=== PATIENT | female | born 1930 | race Caucasian/White ===

== ENCOUNTER 2018-09-03 14:16 | Outpatient (CLI) | payer MEDICARE, OTHER ==
--- NOTE | 2018-09-03 15:29 | RAD ---
PA AND LATERAL CHEST: History: Cough. FINDINGS: The heart size is normal. The lungs are well expanded without lobar consolidation, pneumothoraces or pleural effusions. There are mild degenerative changes in the spine. IMPRESSION: No acute cardiopulmonary process. POS: [facility]
== END 2018-09-03 14:17 | disposition home or self-care (01) ==
LOC: RAD-FRANK 14:16
PROVIDERS: ATTEND Nurse Practitioner Family
DX: J40 Bronchitis, not specified as acute or chronic (principal)
CPT/HCPCS: 71046

== ENCOUNTER 2019-10-01 19:04 | Inpatient (IN) | payer MEDICARE ==
[~2019-10-01 19:04] MED LIST: Dexamethasone 20 MG/5 ML VIAL ONE; Glycopyrrolate 0.2 MG/ML 5 ML SYRINGE ONE; Iopamidol 370 76% 100 ML VIAL ONE; Lidocaine 1% PF 5 ML VIAL ONE; Ondansetron PF 4 MG/2 ML Vial ONE; PROPOFOL 200 MG/20 ML VIAL ONE; Rocuronium Bromide 10 MG/ML (10ML VIAL) ONE; Succinylcholine Chloride 20 MG/ML 10 ml SYRINGE FS ONE
[2019-10-01 19:33] LABS: #Lymphocytes 1.2 thou/uL (1.20-3.40); #Monocytes 0.4 thou/uL (0.11-0.59); #Neutrophils 7.8 thou/uL (1.40-6.50); %Eosinophils 0.1 % (0.0-10.0); %Lymphocytes 12.2 % (21.0-51.0); %Monocytes 4.7 % (0.0-10.0); %Neutrophils 82.9 % (42.0-75.0); Hemoglobin 12.7 g/dL (12.0-16.0); Mean Corpuscular HGB CONC 32.5 g/dL (32.0-36.0); Mean Corpuscular Hemoglobin 28.8 pg (27.0-31.0); Mean Corpuscular Volume 88.5 fL (78.0-98.0); Mean Platelet Volume 9.5 fL (7.4-10.4); Platelet Count 196 thou/uL (130-400); Red Blood Cell (RBC) Count 4.42 mill/uL (4.20-5.40); White Blood Cell (WBC) Count 9.4 thou/uL (4.8-10.8)
[2019-10-01 19:55] LABS: ALT (SGPT) 14 U/L (8-55); AST (SGOT) 17 U/L (5-34); Albumin 4.8 g/dL (3.4-4.8); Alkaline Phosphatase 77 U/L (40-110); Anion Gap 19 mmol/L (10-20); BUN (Urea Nitrogen) 27 mg/dL (9.8-20.1); Bilirubin, Total 0.9 mg/dL (0.2-1.2); Calc. Creatinine Clearance 0 mL/min (70-130); Calcium 10.1 mg/dL (7.8-10.44); Carbon Dioxide 22 mmol/L (23-31); Chloride 97 mmol/L (98-107); Estimated GFR-MDRD 33; Globulin 3.2 g/dL (2.4-3.5); Glucose 242 mg/dL (83-110); Lipase 19 U/L (8-78); Potassium 3.4 mmol/L (3.5-5.1); Sodium 135 mmol/L (136-145)
[2019-10-01] MEDS ORDERED: Ondansetron PF 4 MG/2 ML Vial ONE ×2 (20:13→21:31)
[2019-10-01] MEDS ORDERED: Morphine 4 MG/ML VIAL ONE ×2 (20:33→22:12)
--- NOTE | 2019-10-01 21:43 | CT ---
CT of abdomen and pelvis: 10/01/2019 COMPARISON: None HISTORY: Diarrhea, pain TECHNIQUE: Axial CT imaging at 5 mm intervals from the lung bases through the pubic symphysis with IV contrast. Coronal and sagittal reformatted imaging obtained. 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 Imaged lung bases are unrema rkable. No free intraperitoneal air. There is significant perihepatic and perisplenic free fluid. Cholecystectomy clips are present. No focal liver lesion. There is fatty atrophy of the pancreas. [place] ateral adrenal glands are grossly unremarkable. Bilateral kidneys are relatively small. 2 subcentimeter hypodensities are noted within the left kidney, too small to characterize. There is fluid within a inguinal hernia on the left. There is free fluid within the pelvis posteriorl y. Limited assessment of the bowel without oral contrast demonstrates diverticulosis of the descending colon and sigmoid colon. No evidence for diverticulitis. There is abnormal free fluid in the right paracolic gutter. There are dilated edematous fluid-filled loops of small bowel within the mid abdomen/right lower quad rant. There is a large markedly dilated loop of bowel with a prominent air-fluid level within the epigastric region extending into the right lower quadrant measuring at least 23 cm in craniocaudal di mension. The exact segment of bowel which this represents is difficult to ascertain without contrast media. This is felt to likely represent a markedly dilated loop of distal small bowel. There is swirling of the mesenteric structures in the right lower quadrant, best seen on coronal imaging, consistent with volvulus, with probable associated internal hernia. The markedly dilated loo p of bowel within the abdomen is likely a markedly distended small bowel loop associated with a closed loop obstruction. Surgical consultation is advised. There is atherosclerotic calcification of the abdominal aorta and its branches. No abdominal or pelvi c lymphadenopathy. There is a left hip arthroplasty. There is prominent multilevel lower lumbar spine degenerative change. IMPRESSION: Abnormal free fluid throughout the abdomen/pelvis. Findings suggesting right lower quadra nt volvulus with associated high-grade small bowel obstruction and large dilated loop of bowel with a large air-fluid level within the epigastric region concerning for high-grade small bowel obstructio n, possibly on the basis of closed loop obstruction. Surgical consultation advised. Results called to Dr. Woody at 9:39 PM 10/01/2019
[2019-10-01] MEDS ORDERED: Fentanyl 100 MCG/2 ML VIAL ONE (23:01)
[2019-10-01] MEDS ORDERED: Albumin 25% 100 ML ONE (23:42)
[2019-10-02] MEDS ORDERED: Promethazine HCl 25 MG/ML VIAL IM PRN ×2 (00:24→03:25)
[2019-10-02] MEDS ORDERED: diphenhydrAMINE 50 MG/ML VIAL IVP PRN (00:24)
[2019-10-02] MEDS ORDERED: diphenhydrAMINE 50 MG/ML VIAL IM PRN (00:24)
[2019-10-02] MEDS ORDERED: Ondansetron HCl/PF 4 MG/2 ML Vial IVP PRN (00:24)
[2019-10-02] MEDS ORDERED: diphenhydrAMINE 25 MG CAP PO PRN (00:24)
[2019-10-02] MEDS ORDERED: Zolpidem Tartrate 5 MG TAB PO PRN (00:24)
[2019-10-02] MEDS ORDERED: Naloxone HCl 0.4 mg/ml Vial IV PRN (00:24)
[2019-10-02] MEDS ORDERED: fentaNYL Citrate/PF 2,000 MCG in Sodium Chloride 0.9% 60 ML IV PRN (00:24)
[2019-10-02] MEDS ORDERED: Communication Order-Pharmacy FS SCH (00:30)
[2019-10-02 02:53] VITALS: BMI 29.2
[2019-10-02] MEDS ORDERED: Acetaminophen 1,000 MG in Premix Bag 1 BAG IVPB PRN ×2 (03:25→13:07)
[2019-10-02] MEDS ORDERED: Ondansetron PF 4 MG/2 ML Vial IVP PRN (03:25)
[2019-10-02] MEDS ORDERED: hydrALAZINE 20 MG/ML VIAL SLOW IVP PRN (03:25)
[2019-10-02] MEDS ORDERED: Dextrose 5% in Water 1,000 ML IV PRN (03:25)
[2019-10-02] MEDS ORDERED: Dextrose 50% Abboject 50 ML SYRINGE SLOW IVP PRN (03:25)
[2019-10-02] MEDS ORDERED: Ondansetron ODT 4 MG TAB PO PRN (03:25)
--- NOTE | 2019-10-02 04:55 | OP ---
DATE OF PROCEDURE: 10/02/2019 PREOPERATIVE DIAGNOSIS: Cecal volvulus. POSTOPERATIVE DIAGNOSIS: Cecal volvulus. PROCEDURES PERFORMED: Exploratory laparotomy, right colectomy with isoperistaltic anastomosis. ANESTHESIA: General. ESTIMATED BLOOD LOSS: Minimal. COMPLICATIONS: None. 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 The ischemia resolved with untwisting. She has a very narrow right colon mesentery. Decision was made for right colectomy. DESCRIPTION OF PROCEDURE: The patient was taken to the operating room and laid supine on the operating room table. After general anesthetic was obtained, a Hall was placed. The abdomen was prepped and draped in a sterile fashion. Midline incision was made. Upon entering the abdomen, the small bowel and cecum were ischemic. These were able to be untwisted without difficulty. There was a cecal bascule and cecal volvulus. When it was untwisted, the distal small bowel and colon ischemia did resolve with a very narrow mesentery. Right colon was mobilized along the white line of Toldt. The hepatic flexure mobilized in the usual fashion. INDU 75 stapler was fired across the proximal transverse colon. A reload was fired across the terminal ileum. The right colon mesentery was taken using the Impact LigaSure. The distal end of the small intestine and distal colon do have no evidence of ischemia. Isoperistaltic [id number] anastomosis was performed using INDU 75 stapler. The common enterotomy was closed using running Vicryl suture. The mesenteric defect was closed using interrupted silk suture. No bleeding in the abdomen. The abdomen was irrigated using sterile solution. NG tube was felt to be in good position in the stomach. All instrument counts, needle counts, lap counts were correct. Midline fascia was closed using #1 PDS from the top and bottom and tied in the middle. Subcutaneous tissues were irrigated and closed using 3-0 Vicryl, 4-0 Monocryl and Dermabond. The patient was sent to Recovery in stable condition. All instrument counts, needle counts, and lap counts were correct. Job ID: [id number]
[2019-10-02] MEDS: Sodium Chloride 0.9% 1,000 ML IV SCH ×3 (05:18→17:00)
[2019-10-02] MEDS: HumaLOG 300 UNITS/3 ML VIAL SC PRN (05:30)
[2019-10-02 06:18] LABS: #Lymphocytes 0.7 thou/uL (1.20-3.40); #Monocytes 1.1 thou/uL (0.11-0.59); #Neutrophils 8.9 thou/uL (1.40-6.50); %Basophils 0.1 % (0.0-1.0); %Eosinophils 0.2 % (0.0-10.0); %Lymphocytes 6.4 % (21.0-51.0); %Monocytes 9.9 % (0.0-10.0); %Neutrophils 83.5 % (42.0-75.0); Hemoglobin 10.5 g/dL (12.0-16.0); Mean Corpuscular HGB CONC 33.1 g/dL (32.0-36.0); Mean Corpuscular Hemoglobin 29.8 pg (27.0-31.0); Mean Platelet Volume 9.6 fL (7.4-10.4); Platelet Count 142 thou/uL (130-400); RBC Distribution Width 12.9 % (11.5-14.5); Red Blood Cell (RBC) Count 3.53 mill/uL (4.20-5.40); White Blood Cell (WBC) Count 10.6 thou/uL (4.8-10.8)
[2019-10-02 06:32] LABS: Anion Gap 14 mmol/L (10-20); BUN (Urea Nitrogen) 30 mg/dL (9.8-20.1); Calc. Creatinine Clearance 31 mL/min (70-130); Calcium 8.6 mg/dL (7.8-10.44); Carbon Dioxide 20 mmol/L (23-31); Chloride 106 mmol/L (98-107); Estimated GFR-MDRD 34; Glucose 240 mg/dL (83-110); Potassium 3.9 mmol/L (3.5-5.1); Sodium 136 mmol/L (136-145)
--- NOTE | 2019-10-02 07:27 | HP ---
CHIEF COMPLAINT: Abdominal pain. HISTORY OF PRESENT ILLNESS: This is an 88-year-old female with only prior surgical history of cholecystectomy on the abdomen, who presents with a 2-day history of diffuse abdominal pain and distention. She has had nausea, but no vomiting. No change in bowels. No blood in stool. No history of previous small intestine obstruction. Pain is described as 9/10, sharp, diffuse, nothing makes it better. PAST MEDICAL HISTORY: Hypertension, diabetes mellitus, peripheral vascular disease. PAST SURGICAL HISTORY: Laparoscopic cholecystectomy, right carotid endarterectomy, left hip. MEDICATIONS: Unknown hypertensive. Please see list. ALLERGIES: NO KNOWN DRUG ALLERGIES. SOCIAL HISTORY: No history of smoking, alcohol or other drugs. REVIEW OF SYSTEMS: Ten-system review of systems is otherwise negative unless described above. PHYSICAL EXAMINATION: VITAL SIGNS: Pulse 83, blood pressure 156/67, and O2 sat 98%. HEENT: Sclerae anicteric. Oropharynx clear. NECK: No lymphadenopathy. CHEST: Clear. HEART: Regular rate. ABDOMEN: Soft, diffusely tender with peritoneal signs. Small umbilical hernia, reducible. No inguinal hernias. EXTREMITIES: No ischemia or edema to extremities. LABORATORY DATA: White blood cell count 9, hemoglobin 12, and platelet counts 196. Sodium 135, potassium 3.4, creatinine 1.5, and glucose 242. DIAGNOSTIC DATA: CT scan shows closed loop obstruction, free fluid in the abdomen, no free air. ASSESSMENT: 1. Closed loop intestinal obstruction with peritoneal signs, although hemodynamically stable. 2. Diabetes mellitus. 3. Hypertension. PLAN: Exploratory laparotomy tonight. She has swirling of the mesentery. She could have ischemic changes. Risks, benefits, and alternatives discussed. The family and the patient gave consent, we will do this tonight. Job ID: [id number]
--- NOTE | 2019-10-02 09:19 | PDOC.GSPN ---
Surgery Progress Note: Subj - Subjective Narrative: Ms. Marguerite Berry is an 88 y/o female that is post op day 1 for a right hemicolectomy due to cecal volvulus and obstruction. She feels much better since the surgery. Her abdominal pain is minimal and localized to the midline incision whenever she coughs or moves. She has a BATTERY TESTER at bed side but has not been using it. She complains of a mild sore throat and is requesting cough drops for the irritation. She has been having ice chips and tolerating those well. No appetite yet. She has not had a bowel movement or flatulence. Denies any nausea/vomiting. Denies any fevers, night sweats, DEAN, dyspnea, abdominal distension. No bleeding or drainage from incision overnight. - NG tube in place. - Hall catheter was drained at 0700 am with 85 mL in it at time of this encounter. - IVF @ 125 mL/hr - Has not ambulated. Surgery Progress Note: Obj - Vital signs Vital signs: Vital Signs - Most Recent Temp Pulse Resp BP Pulse Ox 98.5 F 92 15 119/69 100 10/02/19 08:00 10/02/19 08:00 10/02/19 08:00 10/02/19 08:00 10/02/19 08:00 - Physical Exam General: other (Lying flat in bed at time of the exam with family in the room. NAD. Friendly and cooperative.) ENT: normal mucosa, other (No conjunctival pallor.) Neck: no aruna distention, trachea midline Cardiovascular: regular rate and rhythm (without murmurs, rubs, or gallops), other (Radial pulses and posterior tibial pulse palpated bilaterally and symmetric. No pre-tibial edema.) Respiratory: normal expansion, normal respiratory effort, other (Breath sounds were clear with faint crackles in the left lung base.) Abdomen: soft, non tender, nondistended, positive bowel sounds, appropriately tender Hernia: none Genitourinary (Female): other (Hall catheter in place) Psychiatric: memory intact Wound: dressing clean,dry,intact (without erythema, drainage, calor, or bleeding.) Surgery Progress Note: Results - Labs Result Diagrams: 10/02/19 05:44 10/02/19 05:44 Lab results: Laboratory Results - last 24 hr 10/02/19 10/02/19 10/02/19 05:23 05:44 05:44 WBC 10.6 RBC 3.53 L Hgb 10.5 L Hct 31.8 L MCV 90.0 MCH 29.8 MCHC 33.1 RDW 12.9 Plt Count 142 MPV 9.6 Neutrophils % 83.5 H Lymphocytes % 6.4 L Monocytes % 9.9 Eosinophils % 0.2 Basophils % 0.1 Neutrophils # 8.9 H Lymphocytes # 0.7 L Monocytes # 1.1 H Eosinophils # 0.0 Basophils # 0.0 Sodium 136 Potassium 3.9 Chloride 106 Carbon Dioxide 20 L Anion Gap 14 BUN 30 H Creatinine 1.47 H Estimated GFR (MDRD) 34 Glucose 240 H POC Glucose 252 H Calcium 8.6 Surgery Progress Note: A/P - Problem (1) S/P right hemicolectomy Current Visit: Yes Code(s): Z90.49 - ACQUIRED ABSENCE OF OTHER SPECIFIED PARTS OF DIGESTIVE TRACT Status: Acute Assessment and Plan: 1. Marguerite Berry is an 88 y/o female post op day 1 - Right hemicolectomy for cecal volvulus with obstruction. - She is recovering well with minimal pain and distress. Continue BATTERY TESTER. DC NG, ice chips, sips clears - Remove Hall Catheter am tomorrow - She has been having expected elevated glucose post op, continue her insulin regimen. - Her creatinine has been elevated compared to her baseline form her last record 3 years ago. Continue IVF and monitor CMP for resolution. 2. HTN - Her blood pressure has been normal, continue to hold her home medicines. All recommendations will be sent to Dr. Estevez.
[2019-10-02] MEDS: Famotidine/PF 20 mg/2ml Vial SLOW IVP SCH (09:38)
[2019-10-02] MEDS: rOPINIRole HCl 2 MG TAB PO SCH (20:17)
[2019-10-03] MEDS: Sodium Chloride 0.9% 1,000 ML IV SCH ×3 (01:00→23:20)
[2019-10-03 07:14] LABS: Anion Gap 14 mmol/L (10-20); BUN (Urea Nitrogen) 31 mg/dL (9.8-20.1); Calc. Creatinine Clearance 31 mL/min (70-130); Calcium 8.4 mg/dL (7.8-10.44); Carbon Dioxide 22 mmol/L (23-31); Chloride 108 mmol/L (98-107); Estimated GFR-MDRD 34; Glucose 178 mg/dL (83-110); Potassium 3.8 mmol/L (3.5-5.1); Sodium 140 mmol/L (136-145)
[2019-10-03] MEDS: Famotidine/PF 20 mg/2ml Vial SLOW IVP SCH (08:22)
[2019-10-03] MEDS ORDERED: Acetaminophen 1,000 MG in Premix Bag 1 BAG IVPB PRN (10:23)
[2019-10-03] MEDS ORDERED: Fentanyl 100 MCG/2 ML VIAL SLOW IVP PRN (10:23)
--- NOTE | 2019-10-03 10:26 | PDOC.GSPN ---
Surgery Progress Note: Subj - Subjective Patient reports: no new complaints Surgery Progress Note: Obj - Vital signs Vital signs: Vital Signs - Most Recent Temp Pulse Resp BP Pulse Ox 98.6 F 84 18 115/59 L 99 10/03/19 07:48 10/03/19 07:48 10/03/19 07:48 10/03/19 07:48 10/03/19 08:22 - Physical Exam General: no distress Cardiovascular: regular rate and rhythm Respiratory: clear to auscultation Abdomen: soft, positive bowel sounds, appropriately tender Wound: healing well Surgery Progress Note: Results - Labs Result Diagrams: 10/02/19 05:44 10/03/19 05:55 Lab results: Laboratory Results - last 24 hr 10/02/19 10/03/19 10/03/19 23:51 05:55 06:02 Sodium 140 Potassium 3.8 Chloride 108 H Carbon Dioxide 22 L Anion Gap 14 BUN 31 H Creatinine 1.46 H Estimated GFR (MDRD) 34 Glucose 178 H POC Glucose 199 H 192 H Calcium 8.4 Surgery Progress Note: A/P - Problem (1) S/P right hemicolectomy Current Visit: Yes Code(s): Z90.49 - ACQUIRED ABSENCE OF OTHER SPECIFIED PARTS OF DIGESTIVE TRACT Status: Acute - Plan Plan: POD 2 -clears -continue to mobilize -dc director of residence life -kidney function improving
[2019-10-03] MEDS: HumaLOG 300 UNITS/3 ML VIAL SC PRN ×2 (12:29→17:35)
[2019-10-03] MEDS ORDERED: Enoxaparin Sodium 30 MG/0.3 ML SYRINGE SC SCH (21:00)
[2019-10-03] MEDS ORDERED: Enoxaparin Sodium 40 MG/0.4 ML SYRINGE SC SCH (21:00)
[2019-10-03] MEDS: rOPINIRole HCl 2 MG TAB PO SCH (22:08)
[2019-10-04 06:07] LABS: Anion Gap 12 mmol/L (10-20); BUN (Urea Nitrogen) 24 mg/dL (9.8-20.1); Calc. Creatinine Clearance 41 mL/min (70-130); Calcium 8.8 mg/dL (7.8-10.44); Carbon Dioxide 22 mmol/L (23-31); Chloride 110 mmol/L (98-107); Estimated GFR-MDRD 45; Glucose 191 mg/dL (83-110); Potassium 3.6 mmol/L (3.5-5.1); Sodium 140 mmol/L (136-145)
[2019-10-04] MEDS: HumaLOG 300 UNITS/3 ML VIAL SC PRN ×2 (06:27→18:20)
[2019-10-04] MEDS: Famotidine/PF 20 mg/2ml Vial SLOW IVP SCH (08:46)
--- NOTE | 2019-10-04 14:24 | PQF ---
PRITI MEZA BRYAN DAVID MD [id number] SURG B- [id number] CLINICAL DOCUMENTATION IMPROVEMENT CLARIFICATION FORM: ICD-10 Updated PLEASE DO AN ADDENDUM TO THE PROGRESS NOTE WITH ANY DOCUMENTATION UPDATES OR ADDITIONS AND CARRY THROUGH TO DC SUMMARY. THANK YOU. DATE: 10/04/2019, 10/06/2019 ATTN:DR. Marcella BAUTISTA Please exercise your independent, professional judgment in responding to the clarification form. Clinical indicators are provided on the bottom of this form for your review. Please check appropriate box(s): [ ] Acute Renal Failure (ARF) / Acute Kidney Injury (JOEL) [ ] Other diagnosis [ ] Unable to determine In addition, please specify: Present on Admission (POA): [ ] Yes [ ] No [ ] Unable to determine National Kidney Foundation Guidelines for CKD Staging Stage I Kidney damage with normal or increased GFRGFR > 90 Stage IIKidney damage with mildly decreased GFRGFR 60-89 Stage III Kidney damage with moderately decreased GFRGFR 30-59 Stage IVKidney damage with severely decreased GFRGFR 16-29 Stage VKidney failureGFR<15 ESRDEnd Stage Renal DiseaseOn dialysis Acute Renal Failure/Acute Kidney Failure defined as: Increases in SCr by (>) 0.3 mg/dl within 48 hours OR- Increases in SCr by (>) 1.5 times baseline, known or presumed to have occurred within the prior 7 days OR- Urine volume < 0.5 ml/kg/hour for 6 hours (KDIGO supplement 2012 for RIFLE/MARK criteria) For continuity of documentation, please document condition throughout progress notes and discharge summary. Thank You. CLINICAL INDICATORS - SIGNS / SYMPTOMS / LABS / RESULTS AND LOCATION IN MR 10/01 CREATININE 1.50 BUN 27 10/02 CREATININE 1.47 BUN 30 10/03 CREATININE 1.46 BUN 31 10/04 CREATININE 1.13 BUN 24 10/01 ED REPORT: PATIENT PRESENTS FOR EVALUATION OF ABDOMINAL DISTENTION. PATIENT REPORTS 2 DAY HISTORY OF DIARRHEA AND FEELING WEAK, ASSOCIATED WITH INABILITY TO TOLERATE ORAL INTAKE AND LOSS OF APPETITE. 10/02 PN (ANGEL) A/P -HER CREATININE HAS BEEN ELEVATED COMPARED TO HER BASELINE FROM HER LAST RECORD 3 YEARS AGO. 10/03 PN (NIKOLAIT) PLAN- KIDNEY FUNCTION IMPROVING RISK: RECENT SX: EXPLORATORY LAPAROTOMY W RT COLECTOMY W ISOPERISTALTIC ANASTOMOSIS, ADVANCED AGE (88) (OP- NOTE/ PARRENT ) 10/02 TREATMENT: SERIAL CMP LABS ( 10/01-PRESENT) IV FLUIDS ( 10/02-PRESENT) (This form is maintained as a part of the permanent medical record) 2014 [employer]. All Rights Reserved [email or web address] [phone] MTDD
[2019-10-04] MEDS ORDERED: Acetaminophen 1,000 MG in Premix Bag 1 BAG IVPB PRN (16:17)
--- NOTE | 2019-10-04 16:20 | PDOC.GSPN ---
Surgery Progress Note: Subj - Subjective Patient reports: no new complaints, tolerating liquids well Surgery Progress Note: Obj - Vital signs Vital signs: Vital Signs - Most Recent Temp Pulse Resp BP Pulse Ox 98 F 89 16 131/78 91 L 10/04/19 15:17 10/04/19 15:17 10/04/19 15:17 10/04/19 15:17 10/04/19 15:17 - Physical Exam General: no distress Cardiovascular: regular rate and rhythm Respiratory: clear to auscultation Abdomen: soft, nondistended, appropriately tender Wound: healing well Surgery Progress Note: Results - Labs Result Diagrams: 10/02/19 05:44 10/04/19 05:02 Lab results: Laboratory Results - last 24 hr 10/04/19 10/04/19 10/04/19 05:02 05:33 11:45 Sodium 140 Potassium 3.6 Chloride 110 H Carbon Dioxide 22 L Anion Gap 12 BUN 24 H Creatinine 1.13 H Estimated GFR (MDRD) 45 Glucose 191 H POC Glucose 210 H 195 H Calcium 8.8 Surgery Progress Note: A/P - Problem (1) S/P right hemicolectomy Current Visit: Yes Code(s): Z90.49 - ACQUIRED ABSENCE OF OTHER SPECIFIED PARTS OF DIGESTIVE TRACT Status: Acute - Plan Plan: Advance to full liquids Add tramadol for pain HL IVF, creatinine improved
[2019-10-04] MEDS: Enoxaparin Sodium 30 MG/0.3 ML SYRINGE SC SCH (20:22)
[2019-10-04] MEDS: rOPINIRole HCl 2 MG TAB PO SCH (20:22)
[2019-10-05] MEDS: HumaLOG 300 UNITS/3 ML VIAL SC PRN ×4 (00:07→18:39)
[2019-10-05] MEDS: Ondansetron PF 4 MG/2 ML Vial IVP PRN ×2 (06:46→19:57)
[2019-10-05] MEDS: traMADol HCl 50 MG TAB PO PRN (06:46)
[2019-10-05 06:56] LABS: Anion Gap 17 mmol/L (10-20); BUN (Urea Nitrogen) 17 mg/dL (9.8-20.1); Calc. Creatinine Clearance 44 mL/min (70-130); Calcium 8.9 mg/dL (7.8-10.44); Carbon Dioxide 19 mmol/L (23-31); Chloride 108 mmol/L (98-107); Estimated GFR-MDRD 49; Glucose 188 mg/dL (83-110); Potassium 3.6 mmol/L (3.5-5.1); Sodium 140 mmol/L (136-145)
[2019-10-05] MEDS: Famotidine/PF 20 mg/2ml Vial SLOW IVP SCH (09:14)
--- NOTE | 2019-10-05 10:22 | PRG ---
DATE OF SERVICE: 10/05/2019 SUBJECTIVE: Ms. Berry feels more bloated and is having more pain today. She is still ambulating without difficulty. She does complain of nausea this morning. OBJECTIVE: VITAL SIGNS: Her pulse is 76, respirations 18, she is afebrile. Urine output is adequate. ABDOMEN: She has not had a bowel movement yet. Her abdomen is soft. Her wound is healing well. She has some high-pitched and occasional bowel sounds, but she is more distended. ASSESSMENT: 1. Postop right colectomy for cecal volvulus with slow resolution of ileus. 2. Deconditioning. PLAN: I recommended she will do clear liquids only today as tolerated. Her ileus has not completely resolved yet. Encouraged her to ambulate and be active. We will leave the Hall catheter today given her feeling worse. She is to go to rehab next week when her ileus resolves. Job ID: [id number]
[2019-10-05] MEDS: Sodium Chloride 0.9% 1,000 ML IV SCH (10:36)
[2019-10-05] MEDS: Acetaminophen 1,000 MG in Premix Bag 1 BAG IVPB PRN (20:03)
[2019-10-05] MEDS: rOPINIRole HCl 2 MG TAB PO SCH (20:44)
[2019-10-05] MEDS: Enoxaparin Sodium 30 MG/0.3 ML SYRINGE SC SCH (20:44)
[2019-10-06] MEDS: HumaLOG 300 UNITS/3 ML VIAL SC PRN (06:18)
[2019-10-06] MEDS: Sodium Chloride 0.9% 1,000 ML IV SCH ×3 (06:19→18:45)
[2019-10-06 06:25] LABS: #Eosinphils 0.1 thou/uL (0.0-0.7); #Lymphocytes 0.6 thou/uL (1.20-3.40); #Monocytes 1.2 thou/uL (0.11-0.59); #Neutrophils 7.2 thou/uL (1.40-6.50); %Basophils 0.1 % (0.0-1.0); %Eosinophils 0.7 % (0.0-10.0); %Lymphocytes 6.5 % (21.0-51.0); %Monocytes 13.3 % (0.0-10.0); %Neutrophils 79.4 % (42.0-75.0); Hemoglobin 9.7 g/dL (12.0-16.0); Mean Corpuscular HGB CONC 33.7 g/dL (32.0-36.0); Mean Corpuscular Hemoglobin 29.7 pg (27.0-31.0); Mean Corpuscular Volume 88.2 fL (78.0-98.0); Mean Platelet Volume 9.1 fL (7.4-10.4); Platelet Count 183 thou/uL (130-400); RBC Distribution Width 13.2 % (11.5-14.5); Red Blood Cell (RBC) Count 3.26 mill/uL (4.20-5.40)
[2019-10-06 06:47] LABS: Anion Gap 17 mmol/L (10-20); BUN (Urea Nitrogen) 20 mg/dL (9.8-20.1); Calc. Creatinine Clearance 38 mL/min (70-130); Calcium 8.7 mg/dL (7.8-10.44); Carbon Dioxide 19 mmol/L (23-31); Chloride 106 mmol/L (98-107); Estimated GFR-MDRD 42; Glucose 212 mg/dL (83-110); Potassium 3.9 mmol/L (3.5-5.1); Sodium 138 mmol/L (136-145)
[2019-10-06] MEDS: Famotidine/PF 20 mg/2ml Vial SLOW IVP SCH (08:07)
[2019-10-06] MEDS: Acetaminophen 1,000 MG in Premix Bag 1 BAG IVPB PRN (08:07)
[2019-10-06] MEDS ORDERED: Sodium Chloride 0.9% 500 ML IVPB SCH (10:30)
[2019-10-06] MEDS ORDERED: Sodium Chloride 0.9% 250 ML IVPB SCH (18:15)
[2019-10-06] MEDS: rOPINIRole HCl 2 MG TAB PO SCH (20:07)
[2019-10-06] MEDS: Enoxaparin Sodium 30 MG/0.3 ML SYRINGE SC SCH (20:08)
--- NOTE | 2019-10-06 20:11 | PDOC.GSPN ---
Surgery Progress Note: Subj - Subjective Narrative: Patient is feeling more bloated. No vomiting but is not really able to take much by mouth. When I saw her around 11AM her daughter stated that they had already been out ambulating twice today. They're planning to walk at least twice more. Surgery Progress Note: Obj - Vital signs Vital signs: Vital Signs - Most Recent Temp Pulse Resp BP Pulse Ox 98.7 F 90 95 H 167/69 H 94 L 10/06/19 19:38 10/06/19 19:38 10/06/19 19:38 10/06/19 19:38 10/06/19 16:00 - Physical Exam General: no distress Abdomen: soft, decreased bowel sounds, distended Surgery Progress Note: Results - Labs Result Diagrams: 10/06/19 06:03 10/06/19 06:03 Lab results: Laboratory Results - last 24 hr 10/06/19 10/06/19 11:14 17:46 POC Glucose 165 H 163 H Surgery Progress Note: A/P - Plan Plan: Patient appears to have a postoperative ileus. She is not taking much by mouth and seems to be a little dehydrated. Her creatinine has crept up a little bit in her urine output has been low. I have given her a small bolus of IV fluids and increased her baseline rate. In going to leave the Hall catheter to monitor urine output. She was encouraged to ambulate frequently.
[2019-10-06] MEDS: traMADol HCl 50 MG TAB PO PRN (21:41)
[2019-10-06] MEDS: Ondansetron PF 4 MG/2 ML Vial IVP PRN (23:47)
[2019-10-07] MEDS ORDERED: Acetaminophen 1,000 MG in Premix Bag 1 BAG IVPB PRN (00:10)
[2019-10-07] MEDS: HumaLOG 300 UNITS/3 ML VIAL SC PRN (05:59)
[2019-10-07] MEDS: Sodium Chloride 0.9% 1,000 ML IV SCH ×3 (05:59→21:23)
[2019-10-07] MEDS: Famotidine/PF 20 mg/2ml Vial SLOW IVP SCH (08:40)
--- NOTE | 2019-10-07 10:14 | PDOC.GSPN ---
Surgery Progress Note: Subj - Subjective Narrative: Still complaining of nausea at times. No vomitting overnight. Occasional flatus Surgery Progress Note: Obj - Vital signs Vital signs: Vital Signs - Most Recent Temp Pulse Resp BP Pulse Ox 98.5 F 88 14 151/70 H 93 L 10/07/19 07:21 10/07/19 07:21 10/07/19 07:21 10/07/19 07:21 10/07/19 07:21 - Physical Exam General: no distress Cardiovascular: regular rate and rhythm Respiratory: clear to auscultation Abdomen: soft, appropriately tender, distended Wound: healing well Surgery Progress Note: Results - Labs Result Diagrams: 10/06/19 06:03 10/06/19 06:03 Lab results: Laboratory Results - last 24 hr 10/06/19 10/07/19 23:37 05:44 POC Glucose 190 H 205 H Surgery Progress Note: A/P - Problem (1) S/P right hemicolectomy Current Visit: Yes Code(s): Z90.49 - ACQUIRED ABSENCE OF OTHER SPECIFIED PARTS OF DIGESTIVE TRACT Status: Acute - Plan Plan: PO6 right colectomy for volvulus -expected ileus persists -NG if vomits again -Picc/TPN tomorrow if no bowel function -try to DC cox again today
--- NOTE | 2019-10-07 11:26 | RAD ---
Abdomen 2 views INDICATION: Ileus COMPARISON: None FINDINGS: Bowel gas: The dilated loops of small bowel are not appreciably changed from comparison CT dated 09/22. Small amount of gas is present within the rectum. Lung bases: Small bilateral pleural effusions with bibasilar atelectasis Additional findings: Cholecystectomy clips within the right upper quadrant of the abdomen Osseous structures: No acute osseous abnormality is demonstrated.Left hip endoprosthesis. Diffuse ost eopenia. There is scattered degenerative and osteoarthritic change present. IMPRESSION: 1. Persistent prominent dilated loops of small bowel within the central abdomen may reflect a promine nt ileus; however, high-grade partial small bowel obstruction remains a concern. 2. Small bilateral pleural effusions and bibasilar atelectasis
[2019-10-07] MEDS: Enoxaparin Sodium 30 MG/0.3 ML SYRINGE SC SCH (21:10)
[2019-10-07] MEDS: rOPINIRole HCl 2 MG TAB PO SCH (21:11)
[2019-10-08] MEDS: Sodium Chloride 0.9% 1,000 ML IV SCH ×2 (04:45→06:31)
[2019-10-08] MEDS: HumaLOG 300 UNITS/3 ML VIAL SC PRN (06:29)
--- NOTE | 2019-10-08 08:53 | PDOC.GSPN ---
Surgery Progress Note: Subj - Subjective Patient reports: pain well controlled, tolerating liquids well Narrative: 88 yo female approx 1 wk s/p R angelique-colectomy d/t volvulus. Reports PO intake of ice chips only since yesterday & has been doing well with this without additional n/v. BM x3 & urinated x2 yesterday. Most recent urination was approx 2100 last night. English like she needed to urinate earlier this am, but was unable to do so now. Feels like she is weaker now vs 1st day post-op; is concerned that she need help to get out of bed--states this is d/t feeling weak & not d/t pain. Denies suprapubic pain or pressure, denies current sensation of needing to urinate. Surgery Progress Note: Obj - Vital signs Vital signs: Vital Signs - Most Recent Temp Pulse Resp BP Pulse Ox 98.2 F 70 16 122/68 93 L 10/08/19 04:00 10/08/19 04:00 10/08/19 04:00 10/08/19 04:00 10/08/19 04:00 - Physical Exam General: no distress, well developed, well nourished Cardiovascular: regular rate and rhythm Respiratory: clear to auscultation, normal respiratory effort Abdomen: soft, non tender, positive bowel sounds Musculoskeletal: other (Sitting comfortably in chair) Psychiatric: other (Awake/alert. Answers questions approrpriately) Wound: healing well Surgery Progress Note: Results - Labs Result Diagrams: 10/06/19 06:03 10/06/19 06:03 Lab results: Laboratory Results - last 24 hr 10/07/19 10/08/19 23:54 05:31 POC Glucose 200 H 178 H Surgery Progress Note: A/P - Problem (1) S/P right hemicolectomy Current Visit: Yes Code(s): Z90.49 - ACQUIRED ABSENCE OF OTHER SPECIFIED PARTS OF DIGESTIVE TRACT Status: Acute - Plan Plan: Overall doing better today vs yesterday. Consider advancing diet today. Continue to monitor urine output--if unable to void this morning, will need to cath again. Still planning on d/c to rehab when ready. Addendum - Physician - Physician Attestation Date/Time: 10/08/19 1041 I personally performed or re-performed the physical examination and medical decision making. I have verified all student documentation or findings, including history, physical exam and/or medical decision making. Doing better today. Derek clears Able to void on her own Advance to full liquids
[2019-10-08] MEDS: Famotidine/PF 20 mg/2ml Vial SLOW IVP SCH (09:01)
[2019-10-08] MEDS ORDERED: Sodium Chloride 0.9% 1,000 ML IV SCH (10:41)
[2019-10-08] MEDS: Enoxaparin Sodium 30 MG/0.3 ML SYRINGE SC SCH (21:10)
[2019-10-08] MEDS: rOPINIRole HCl 2 MG TAB PO SCH (21:10)
--- NOTE | 2019-10-09 07:02 | PDOC.GSPN ---
Surgery Progress Note: Subj - Subjective Patient reports: no new complaints Narrative: Ms. 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 She has struggled with prolonged post-operative ileus, however today she is doing well. Her pain is controlled (0/10) and reports tolerating clear liquids well. She plans to try cream of wheat this morning for breakfast. She is passing bowel movements, however she is having difficulty voiding. Last night she had a straight catheter with ~400 ml output from bladder. She will try to void on her own again this AM. She is walking and working with PT without issues. Family member mentions that she believes the patient is breathing a little faster today and may be nervous from being in the hospital. Patient denies nausea, vomiting, and dizziness. Surgery Progress Note: Obj - Vital signs Vital signs: Vital Signs - Most Recent Temp Pulse Resp BP Pulse Ox 97.4 F L 83 16 142/74 H 95 10/09/19 04:00 10/09/19 04:00 10/09/19 04:00 10/09/19 04:00 10/09/19 05:22 - Physical Exam General: no distress, no pain ENT: normal mucosa Cardiovascular: regular rate and rhythm, no murmur, other (No lower extremity edema. 2+ pedal pulses bilaterally & symmetrically.) Respiratory: clear to auscultation (With intermittent crackles. Good air flow.) , normal expansion Abdomen: soft (Slightly distended but not rigid.), positive bowel sounds, appropriately tender Psychiatric: oriented to time, oriented to person, oriented to place Wound: dressing clean,dry,intact, healing well (No surrounding erythema, purulent drainage, or bleeding from midline incision.) Surgery Progress Note: Results - Labs Result Diagrams: 10/06/19 06:03 10/06/19 06:03 Lab results: Laboratory Results - last 24 hr 10/09/19 10/09/19 00:13 05:42 POC Glucose 150 H 157 H Surgery Progress Note: A/P - Plan Plan: Ms. 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 She is improving from her post-operative ileus, positive bowel movements, tolerating clears, and ambulating well. -Continue full liquids today -Monitor voids and urine output -Continue walking and working with PT -Continue use of spirometer HTN -Stable with Hydralazine and Verapamil -Still holding home Furosemide and HCTZ DM -Currently on sliding scale Addendum - Physician - Physician Attestation Date/Time: 10/09/19 1101 I personally performed or re-performed the physical examination and medical decision making. I have verified all student documentation or findings, including history, physical exam and/or medical decision making. Will advance to GI soft diet to give her more options I suspect anorexia will persist for the next 2 to 4 weeks. Restart Zoloft Probably
[2019-10-09] MEDS: Famotidine/PF 20 mg/2ml Vial SLOW IVP SCH (08:59)
--- NOTE | 2019-10-09 12:07 | RAD ---
XR Chest 1 View Portable History: Dyspnea Comparison: Radiograph 2012 Findings: Moderate effusions. Heart size is enlarged. Abnormal left peripheral airspace opacity. No p neumothorax. Impression: 1. Moderate layering bilateral pleural effusions. 2. Mild cardiomegaly and low-grade portal venous congestion. 3. Peripheral somewhat round density left lower lobe which appears new from the 10/01/2019 CT examina tion may be confluent pleural fluid. Attention on follow-up imaging recommended.
[2019-10-09] MEDS: HumaLOG 300 UNITS/3 ML VIAL SC PRN (12:08)
[2019-10-09] MEDS ORDERED: Furosemide 20 MG/2 ML VIAL SLOW IVP SCH (15:15)
[2019-10-09] MEDS: Enoxaparin Sodium 30 MG/0.3 ML SYRINGE SC SCH (21:00)
[2019-10-09] MEDS: rOPINIRole HCl 2 MG TAB PO SCH (21:00)
[2019-10-10 05:31] LABS: Anion Gap 20 mmol/L (10-20); BUN (Urea Nitrogen) 22 mg/dL (9.8-20.1); Calc. Creatinine Clearance 34 mL/min (70-130); Calcium 8.7 mg/dL (7.8-10.44); Carbon Dioxide 14 mmol/L (23-31); Chloride 110 mmol/L (98-107); Estimated GFR-MDRD 36; Glucose 183 mg/dL (83-110); Potassium 3.8 mmol/L (3.5-5.1); Sodium 140 mmol/L (136-145)
--- NOTE | 2019-10-10 06:58 | PDOC.GSPN ---
Surgery Progress Note: Subj - Subjective Patient reports: feels better, diarrhea Narrative: Ms. 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 She is feeling well today, however she experienced several episodes of loose stools and uncontrollable diarrhea last night. She is breathing better today, continues to ambulate well, and has been voiding on her own. She reports eating chicken noodle soup and other soft foods yesterday without issues. However, at dinner she experienced sudden nausea when attempting to eat guyanese fries and fish, after which she only consumed ice chips and water. Patient denies abdominal pain, chest pain, dyspnea, and dizziness. Surgery Progress Note: Obj - Vital signs Vital signs: Vital Signs - Most Recent Temp Pulse Resp BP Pulse Ox 97.7 F 77 16 121/69 96 10/10/19 03:21 10/10/19 03:21 10/10/19 03:21 10/10/19 03:21 10/10/19 03:21 - Physical Exam General: no distress ENT: normal mucosa Cardiovascular: regular rate and rhythm (Possible new systolic murmur.), other ( Pedal pulses 2+ bilaterally. 1+ edema up to santiago level bilaterally.) Respiratory: clear to auscultation (However did ausculate crackes at lower lung villalobos.), normal expansion, normal respiratory effort Abdomen: soft, non tender, nondistended, positive bowel sounds Psychiatric: oriented to time, oriented to person, oriented to place Wound: dressing clean,dry,intact (No surrounding erythema, purulend drainage, or bleeding from midline incision.), healing well Surgery Progress Note: Results - Labs Result Diagrams: 10/06/19 06:03 10/10/19 04:38 Lab results: Laboratory Results - last 24 hr 10/09/19 10/10/19 23:03 04:38 Sodium 140 Potassium 3.8 Chloride 110 H Carbon Dioxide 14 L Anion Gap 20 BUN 22 H Creatinine 1.37 H Estimated GFR (MDRD) 36 Glucose 183 H POC Glucose 192 H Calcium 8.7 Surgery Progress Note: A/P - Plan Plan: Ms. 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 -CXR (12/10) showed bilateral pleural effusions with mild cardiomegaly -Kidney values have worsened slightly: BUN 20 to 22, Cr 1.2 to 1.37, GFR 42 to 36 -Ambulating well. Breathing is better. Voiding on her own. Nausea yesterday with dinner. -Stay on GI softs for today as tolerated. Continue to hydrate. Monitor nausea. -Continue to ambulate and walk -Continue to use spirometer Diarrhea -Plan to run C. Diff Assay -Monitor bowel movements HTN -Blood pressures have been stable. -Currently on Hydralazine and Verapamil -Home furosemide and HCTZ on hold DM -Blood glucose checks have been stable. -Currently on sliding scale
[2019-10-10] MEDS: Famotidine/PF 20 mg/2ml Vial SLOW IVP SCH (08:40)
[2019-10-10] MEDS: HumaLOG 300 UNITS/3 ML VIAL SC PRN (12:19)
[2019-10-10] MEDS: Enoxaparin Sodium 30 MG/0.3 ML SYRINGE SC SCH (20:51)
[2019-10-10] MEDS: rOPINIRole HCl 2 MG TAB PO SCH (20:51)
[2019-10-11] MEDS: HumaLOG 300 UNITS/3 ML VIAL SC PRN ×3 (00:36→18:18)
--- NOTE | 2019-10-11 06:43 | PDOC.GSPN ---
Surgery Progress Note: Subj - Subjective Patient reports: no new complaints, having loose stools Narrative: Ms. 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 She is doing well this morning, however she continues to have diarrhea. Most recent episode was 3:00am this morning. She is able to tolerate small bites of food including soup, soft cake, and Ensure. She continues to ambulate well in the hallways and has been voiding on her own. Pain well controlled. Patient denies nausea, vomiting, dizziness, and shortness of breath. Surgery Progress Note: Obj - Vital signs Vital signs: Vital Signs - Most Recent Temp Pulse Resp BP Pulse Ox 98.1 F 76 16 107/65 94 L 10/11/19 04:42 10/11/19 04:42 10/11/19 04:42 10/11/19 04:42 10/11/19 04:42 - Physical Exam General: no distress Cardiovascular: regular rate and rhythm, no murmur, other (2+ edema bilaterally in lower extremities.) Respiratory: clear to auscultation (No crackles, rales, or wheezes.), normal expansion, normal respiratory effort, breath sounds present Abdomen: soft, non tender, nondistended, positive bowel sounds, other (No ecchymosis.) Integumentary: no rash Psychiatric: oriented to time, oriented to person, oriented to place Wound: dressing clean,dry,intact, healing well (Midline incision is clean and without surrouding erythema, purulent discharge, or bleeding.) Surgery Progress Note: Results - Labs Result Diagrams: 10/06/19 06:03 10/10/19 04:38 Lab results: Laboratory Results - last 24 hr 10/11/19 10/11/19 00:28 06:10 POC Glucose 217 H 112 H Surgery Progress Note: A/P - Plan Plan: Ms. 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 -Ambulating well. Breathing is better. Voiding on her own. No nausea. Vitals and blood glucose checks stable. -C Diff. test was negative(-) -Stay on GI softs & continue to hydrate -Plan to discharge to rehab -Continue to ambulate, walk, & use spirometer. Diarrhea -Monitor bowel movements -Continue to hydrate and encourage Ensure high protein HTN -Currently on Hydralazine and Verapamil -Home furosemide and HCTZ on hold DM -Currently on sliding scale Addendum - Physician - Physician Attestation Date/Time: 10/11/19 4054 I personally performed or re-performed the physical examination and medical decision making. I have verified all student documentation or findings, including history, physical exam and/or medical decision making. Overall doing well. Still feels weak bharati regular diet to rehab tomorrow if bed available
[2019-10-11] MEDS: Famotidine/PF 20 mg/2ml Vial SLOW IVP SCH (09:17)
[2019-10-11] MEDS: rOPINIRole HCl 2 MG TAB PO SCH (20:44)
[2019-10-11] MEDS: Enoxaparin Sodium 30 MG/0.3 ML SYRINGE SC SCH (20:44)
[2019-10-12] MEDS: HumaLOG 300 UNITS/3 ML VIAL SC PRN (05:35)
[2019-10-12] MEDS: Famotidine/PF 20 mg/2ml Vial SLOW IVP SCH (08:39)
--- NOTE | 2019-10-12 08:51 | DIS ---
DATE OF ADMISSION: 10/01/2019 DATE OF DISCHARGE: 10/12/2019 ADMITTING DIAGNOSES: 1. Cecal and small bowel volvulus. 2. Acute renal failure. 3. Diabetes mellitus. 4. Hypertension. DISCHARGE DIAGNOSES: 1. Cecal and small bowel volvulus. 2. Acute renal failure. 3. Diabetes mellitus. 4. Hypertension. PROCEDURES: Right hemicolectomy by Dr. Estevez without complication. CONDITION ON DISCHARGE: Improved. STAFF: Josep Estevez MD HOSPITAL COURSE: The patient was admitted with peritonitis and cecal volvulus on CT scan. She underwent exploratory laparotomy and right colectomy. She had fairly significant ischemia to her small bowel as well that improved with the untwisting of the midgut. On her postop course, ileus resolved fairly quickly. However, she did have some vomiting and had recurrent ileus. This slowly resolved. On the day of discharge, she is tolerating regular food. She is having bowel movements. She had, had some loose stools and had a Clostridium difficile toxin test that was negative. She is being transferred to rehab. Her medicines from home will all be restarted. She will follow up in my office in 3 to 4 weeks. Job ID: [id number]
[2019-10-12 12:27] VITALS: BP 148/75
[2019-10-12 17:54] VITALS: TEMP 97.9
--- NOTE | 2019-10-14 02:43 | PQF ---
PRITI MEZA BRYAN DAVID MD [id number] SURG B- [id number] CLINICAL DOCUMENTATION CLARIFICATION FORM: POST DISCHARGE Addendum to original discharge summary date: ____ Late entry note date: __ DATE:10/14/19 ATTN: Josep De La Torre Please exercise your independent, professional judgment in responding to the clarification form. Clinical indicators are provided on the bottom of this form for your review Please check appropriate box(s) to clarify if the following diagnosis has been ruled in or ruled out: Peritonitis [ ] Ruled in diagnosis [ ] Continue to treat [ ] Resolved [ ] Ruled out diagnosis [ ] Cannot rule out diagnosis [ ] Other diagnosis [ ] Unable to determine In addition, please specify: Present on Admission (POA): [ ] Yes [ ] No [ ] Unable to determine For continuity of documentation, please document condition throughout progress notes and discharge summary. Thank You. CLINICAL INDICATORS - SIGNS / SYMPTOMS / LABS CAT Scan report p2 10/01 Dr Pierson Impression: Abnormal free fluid throughout abdomen/pelvis. Findings suggesting right lower quadrant volvulus with associated high-grade bowel obstruction and large dilated loop bowel General Surgery PN 3 10/02 'She is recovering well with minimal pain and distress. Discharge summary p1 10/12 The patient was admitted with peritonitis and cecal volvulus on CT RISK FACTORS Operaive report 10/02 88 year-old Female Operaive report 10/02 Cecal Volvulos TREATMENTS Operaive report 10/02 Right colectomy MAR 10/01 IVF 125ml/hr (This form is maintained as a part of the permanent medical record) 2014 [employer]. All Rights Reserved Maria G [email or web address] [not provided] MTDD
== END 2019-10-12 18:30 | DRG 330 ==
LOC: ERS 19:04 → SDC/OP 23:16 → SURG B 23:19
PROVIDERS: ADMIT Surgery; ATTEND Surgery
PROC: 0DTG0ZZ Resection of Left Large Intestine, Open Approach (ICD-10-PCS; principal; 2019-10-02)
DX: K56.2 Volvulus (principal); N17.9 Acute kidney failure, unspecified; I10 Essential (primary) hypertension; K56.7 Ileus, unspecified; E11.51 Type 2 diabetes mellitus with diabetic peripheral angiopathy without gangrene; E86.0 Dehydration; R19.7 Diarrhea, unspecified; Z90.49 Acquired absence of other specified parts of digestive tract; Z79.84 Long term (current) use of oral hypoglycemic drugs; Z79.51 Long term (current) use of inhaled steroids; Z79.899 Other long term (current) drug therapy
CPT/HCPCS: 36415; 36416; 71045; 74019; 74177; 80048; 80053; 83690; 85025; 87324; 87449; 88307; 96361; 96374; 96375; 96376; J0131; J1100; J1200; J1650; J1940; J2001; J2270; J2405; J2704; J3010; J3490; J7050; P9047; Q0162; Q9967; S0028

== ENCOUNTER 2019-12-19 12:47 | Outpatient (CLI) | payer MEDICARE ==
--- NOTE | 2019-12-19 13:28 | ULT ---
Bilateral renal ultrasound CLINICAL INDICATION: Chronic renal failure. COMPARISON: CT abdomen on 10/22/2019 and study on 07/20/2012 FINDINGS: Right kidney: There is no evidence of a renal mass, renal calculus, or hydronephrosis seen. The right kidney measures 10.1 cm x 4.3 cm. Left kidney: There is a small anechoic cystic appearing lesion at the inferior pole left kidney with sonographic characteristics most suggestive of a cyst. There is a hypodense cystic lesion seen in this region on prior CT scan examinations including study in 2011. No hydronephrosis, renal calculus, or perinephric fluid collection is seen on the left.The left kidney measures 9.1 cm x 4.8 cm. Urinary bladder: Normal in appearance. Urinary bladder volume is 315.4 mL. Post void imaging was not performed. IMPRESSION: 1. No evidence of hydronephrosis or renal cortical thinning. 2. Inferior pole left renal cyst. This cystic lesion was seen on prior CT examinations in 2018 and 11 10
== END 2019-12-19 12:48 | disposition home or self-care (01) ==
LOC: BICULT 12:47
PROVIDERS: ATTEND Internal Medicine Nephrology
DX: N18.4 Chronic kidney disease, stage 4 (severe) (principal); N28.1 Cyst of kidney, acquired
CPT/HCPCS: 76770

== ENCOUNTER 2020-07-31 12:35 | Outpatient (CLI) | payer MEDICARE ==
--- NOTE | 2020-07-31 13:23 | ULT ---
EXAM: Bilateral lower extremity venous ultrasound HISTORY: Edema. COMPARISON: 10/03/2016 TECHNIQUE: Multiplanar grayscale and color Doppler images were obtained in a bilateral lower extremit y venous ultrasound. Spectral analysis of the Doppler waveforms were performed. FINDINGS: The bilateral common femoral vein, profunda femoral veins, superficial femoral veins, and p opliteal veins are normal in appearance without visible thrombus. These vessels demonstrate normal compression, flow, and augmentation. The bilateral posterior tibial veins, profunda femoral veins and greater saphenous veins are patent w ithout evidence of DVT. IMPRESSION: No evidence of DVT in the left or right lower extremity.
== END 2020-07-31 12:36 | disposition home or self-care (01) ==
LOC: ULT 12:35
DX: R60.9 Edema, unspecified (principal); I73.9 Peripheral vascular disease, unspecified
CPT/HCPCS: 93922; 93970